=== PATIENT | male | born 1950 | race Caucasian/White ===

== ENCOUNTER 2017-06-11 09:41 | Emergency (ER) | payer SELFPAY ==
[~2017-06-11] VITALS: Ht 182.9 cm; Wt 95.3 kg
[~2017-06-11 09:41] MED LIST: AMLODIPINE BES2.5 MG ORAL; CIPRO500 MG PO; HYDROCHLOROTH12.5 M2 ORAL; HYTRIN5 MG PO; IMITREX50 MG ORAL; TERAZOSIN HCL5 MG PO; TRAMADOL HCL50 MG ORAL
[2017-06-11 10:21] LABS: APPEARANCE,URINE CLEAR; KETONES,URINE NEGATIVE (NEGATIVE); LEUKOCYTE ESTERASE ,URINE NEGATIVE (NEGATIVE); NITRITE,URINE NEGATIVE (NEGATIVE); PH,URINE 5 (4.5-8.0); PROTEIN,URINE NEGATIVE (NEGATIVE); UROBILINOGEN,URINE NORMAL MG/DL (0.0-1.0)
--- NOTE | 2017-06-11 10:26 | Emergency Room Report ---
History of Present Illness General Chief Complaint: Male Urogenital Problems Source: Patient Present Illness HPI 66-year-old male, history of hypertension and BPH, presenting with urinary retention for 3 days. Patient states difficulty with urination, has had mild dribbling for the last 3 days however no good stream of urine. Patient states that this has happened in the past and had he has required a Wylie. Patient states that he has been out of his terazosin for 6 days. Patient denies any chest pain shortness of breath abdominal pain fever or chills. No hematuria Allergies: Coded Allergies: No Known Allergies (Unverified , 08/26/14) Patient History Past Medical History: see triage record Past Surgical History: none Pertinent Family History: none Reviewed Nursing Documentation: PMH: Agreed, PSxH: Agreed Nursing Documentation-PMH Hx Cardiac Problems: No Hx Hypertension: Yes Hx Pacemaker: No Hx Asthma: No Hx COPD: No Hx Diabetes: No Hx Cancer: No Hx Gastrointestinal Problems: Yes Hx Dialysis: No - BPH History Of Psychiatric Problem: No Hx Neurological Problems: Yes Hx Cerebrovascular Accident: No Hx Seizures: No Hx Headaches: Yes - MIGRAINES Review of Systems All Other Systems: negative except mentioned in HPI Physical Exam Vital Signs Date Time Temp Pulse Resp B/P (MAP) Pulse Ox O2 Delivery O2 Flow Rate FiO2 06/11/17 09:45 97.7 86 14 124/86 95 Room Air Sp02 EP Interpretation: reviewed, normal General Appearance: normal inspection, well appearing, no apparent distress, alert, GCS 15, non-toxic Head: normocephalic, atraumatic Eyes: bilateral eye normal inspection, bilateral eye PERRL, bilateral eye EOMI ENT: normal ENT inspection, normal pharynx, normal voice, moist mucus membranes Neck: normal inspection, full range of motion, supple Respiratory: normal inspection, lungs clear, normal breath sounds, no respiratory distress, no retraction, no wheezing, speaking full sentences, chest symmetrical Cardiovascular #1: normal inspection, regular rate, rhythm, no edema, normal capillary refill Cardiovascular #2: 2+ radial (R), 2+ radial (L) Gastrointestinal: normal inspection, non tender, soft, non-distended, no guarding Genitourinary: no CVA tenderness Musculoskeletal: normal inspection, back normal, normal range of motion, non- tender Neurologic: normal inspection, alert, oriented x3, responsive, motor strength/ tone normal, sensory intact, normal gait, speech normal Psychiatric: normal inspection, judgement/insight normal, memory normal Skin: normal inspection, normal color, no rash, warm/dry, well hydrated, normal turgor Medical Decision Making Diagnostic Impression: Primary Impression: Urinary retention Additional Impression: BPH (benign prostatic hyperplasia) ER Course 66 yo male with urinary retention DDX: Urinary retention likely secondary to BPH, rule out UTI Plan: Obtain labs, ua Wylie placement ER course: Patient has remained stable during ED stay. Wylie placed which drained more than 1200 mL of urine. UA negative for infection. Patient feels much better. Disposition: Patient is to be discharged to home Wylie and leg bag Patient is instructed to follow up with their primary care doctor within 5 days. Patient is instructed to follow up with urology within 2 days for Wylie removal Strict return precautions discussed with patient such as fever, chills, worsening/severe pain, nausea, vomiting, which may indicate severe illness. Patient verbalizes understanding and agrees with plan. Please note that this Emergency Department Report was dictated using [employer]ert[employer] drier machine operator technology software, occasionally this can lead to erroneous entry secondary to interpretation by the dictation equipment Laboratory Tests Test 06/11/17 10:05 06/11/17 10:38 Urine Color Pale yellow Urine Appearance Clear Urine pH 5 (4.5-8.0) Urine Specific [place] 1.015 (1.005-1.035) Urine Protein Negative (NEGATIVE) Urine Glucose (UA) Negative (NEGATIVE) Urine Ketones Negative (NEGATIVE) Urine Occult Blood Negative (NEGATIVE) Urine Nitrite Negative (NEGATIVE) Urine Bilirubin Negative (NEGATIVE) Urine Urobilinogen Normal MG/DL (0.0-1.0) Urine Leukocyte Esterase Negative (NEGATIVE) White Blood Count 6.6 K/UL (4.8-10.8) Red Blood Count 4.38 M/UL (4.70-6.10) L Hemoglobin 14.8 G/DL (14.2-18.0) Hematocrit 42.3 % (42.0-52.0) Mean Corpuscular Volume 96 FL (80-99) Mean Corpuscular Hemoglobin 33.8 PG (27.0-31.0) H Mean Corpuscular Hemoglobin Concent 35.1 G/DL (32.0-36.0) Red Cell Distribution Width 10.6 % (11.6-14.8) L Platelet Count 189 K/UL (150-450) Mean Platelet Volume 7.8 FL (6.5-10.1) Neutrophils (%) (Auto) 82.1 % (45.0-75.0) H Lymphocytes (%) (Auto) 11.4 % (20.0-45.0) L Monocytes (%) (Auto) 5.2 % (1.0-10.0) Eosinophils (%) (Auto) 0.5 % (0.0-3.0) Basophils (%) (Auto) 0.8 % (0.0-2.0) Sodium Level 142 mEQ/L (135-145) Potassium Level 4.3 mEQ/L (3.4-4.9) Chloride Level 105 mEQ/L (98-107) Carbon Dioxide Level 26 mEQ/L (20-30) Anion Gap 11 (5-15) Blood Urea Nitrogen 23 mg/dL (7-23) Creatinine 1.4 mg/dL (0.7-1.2) H Estimate Glomerular Filtration Rate 51.0 mL/min (>60) Glucose Level 119 mg/dL (74-106) H Calcium Level 9.4 mg/dL (8.6-10.2) Total Bilirubin 0.4 mg/dL (0.0-1.2) Aspartate Amino Transferase (AST) 15 U/L (5-40) Alanine Aminotransferase (ALT) 16 U/L (3-41) Alkaline Phosphatase 71 U/L (40-129) Total Protein 7.3 g/dL (6.6-8.7) Albumin 4.2 g/dL (3.5-5.2) Globulin 3.1 g/dL Albumin/Globulin Ratio 1.3 (1.0-2.7) Rhythm Strip Diag. Results EP Interpretation: yes Rate: 70 Rhythm: NSR, no PVC's, no ectopy Last Vital Signs Date Time Temp Pulse Resp B/P (MAP) Pulse Ox O2 Delivery O2 Flow Rate FiO2 06/11/17 09:45 97.7 86 14 124/86 95 Room Air Disposition: HOME, SELF-CARE Condition: Improved Referrals: NOT CHOSEN IPA/,REFERRING (PCP) Elizabeth Agudelo M.D. Jun 11, 2017 10:26
[2017-06-11] MEDS ORDERED: Acetaminophen 500mg (ES) tab ORAL ONE (10:30)
[2017-06-11 10:54] LABS: BASOPHILS % (AUTO) 0.8 % (0.0-2.0); EOSINOPHILS % (AUTO) 0.5 % (0.0-3.0); LYMPHOCYTES % (AUTO) 11.4 % (20.0-45.0); MEAN CORPUSCULAR HEMOGLOBIN 33.8 PG (27.0-31.0); MEAN CORPUSCULAR HGB CONC 35.1 G/DL (32.0-36.0); MEAN CORPUSCULAR VOLUME 96 FL (80-99); MEAN PLATELET VOLUME 7.8 FL (6.5-10.1); MONOCYTES % (AUTO) 5.2 % (1.0-10.0); NEUTROPHILS % (AUTO) 82.1 % (45.0-75.0); PLATELET COUNT 189 K/UL (150-450); RED BLOOD COUNT 4.38 M/UL (4.70-6.10); RED CELL DISTRIBUTION WIDTH 10.6 % (11.6-14.8); WHITE BLOOD COUNT 6.6 K/UL (4.8-10.8)
[2017-06-11 11:06] LABS: ALBUMIN/GLOBULIN RATIO 1.3 (1.0-2.7); CALCIUM 9.4 mg/dL (8.6-10.2); CREATININE 1.4 mg/dL (0.7-1.2); POTASSIUM 4.3 mEQ/L (3.4-4.9); TOTAL PROTEIN 7.3 g/dL (6.6-8.7)
[2017-06-11 12:01] VITALS: BP 14/68
== END 2017-06-11 12:04 | disposition home or self-care (01) ==
LOC: EMR 10:15
DX: N40.1 Benign prostatic hyperplasia with lower urinary tract symptoms (principal); R33.8 Other retention of urine; I10 Essential (primary) hypertension
CPT/HCPCS: 36415; 51702; 80053; 81003; 85025; 99284

== ENCOUNTER 2017-10-07 08:34 | Emergency (ER) | payer MEDICAID ==
[~2017-10-07] VITALS: Ht 180.3 cm; Wt 93.0 kg
[2017-10-07 08:55] VITALS: BP 135/86
[2017-10-07 10:18] LABS: APPEARANCE,URINE CLEAR; BILIRUBIN, URINE NEGATIVE (NEGATIVE); COLOR,URINE PALE YELLOW; GLUCOSE, URINE (UA) NEGATIVE (NEGATIVE); KETONES,URINE NEGATIVE (NEGATIVE); LEUKOCYTE ESTERASE ,URINE NEGATIVE (NEGATIVE); NITRITE,URINE NEGATIVE (NEGATIVE); PH,URINE 7 (4.5-8.0); PROTEIN,URINE NEGATIVE (NEGATIVE); UROBILINOGEN,URINE NORMAL MG/DL (0.0-1.0)
--- NOTE | 2017-10-07 10:54 | Emergency Room Report ---
History of Present Illness General Chief Complaint: Male Urogenital Problems Source: Patient Present Illness HPI Patient states he has a history of urinary retention. He an enlarged prostate. He states that he ran out of his Flomax. He states that he he was having difficulty urinating yesterday. He states he hasn't urinated at all today. He states he has a lot of pressure in the suprapubic region. He has urgency to go but is unable to urinate. He states that he does get his primary care at [facility]. He states he has had a Wylie catheter in the past. He denies fever or chills. He denies nausea or vomiting. He has no other complaints. Allergies: Coded Allergies: No Known Allergies (Unverified , 08/26/14) Patient History Past Medical History: see triage record, HTN, other - BPH Social History: Reports: smoking, alcohol use Reviewed Nursing Documentation: PMH: Agreed, PSxH: Agreed Nursing Documentation-PMH Hx Cardiac Problems: No Hx Hypertension: Yes Hx Pacemaker: No Hx Asthma: No Hx COPD: No Hx Diabetes: No Hx Cancer: No Hx Gastrointestinal Problems: No Hx Dialysis: No - BPH Hx Neurological Problems: No Hx Cerebrovascular Accident: No Hx Seizures: No Hx Headaches: Yes - MIGRAINES Review of Systems All Other Systems: negative except mentioned in HPI Physical Exam Vital Signs Date Time Temp Pulse Resp B/P (MAP) Pulse Ox O2 Delivery O2 Flow Rate FiO2 10/07/17 08:51 58 16 135/86 96 Room Air 10/07/17 08:55 98.1 Sp02 EP Interpretation: reviewed, normal General Appearance: no apparent distress, alert, GCS 15, non-toxic Head: normocephalic, atraumatic Eyes: bilateral eye normal inspection, bilateral eye PERRL ENT: hearing grossly normal, normal pharynx, no angioedema, normal voice Neck: full range of motion, supple/symm/no masses Respiratory: chest non-tender, lungs clear, normal breath sounds, speaking full sentences Cardiovascular #1: regular rate, rhythm, no edema Gastrointestinal: normal bowel sounds, non tender, soft, non-distended, no guarding, no rebound Rectal: deferred Genitourinary: normal inspection, no CVA tenderness Musculoskeletal: back normal, gait/station normal, normal range of motion, non- tender, calf tenderness Neurologic: alert, oriented x3, responsive, motor strength/tone normal, sensory intact, speech normal Psychiatric: judgement/insight normal, memory normal, mood/affect normal, no suicidal/homicidal ideation Reflexes: 3+ bicep (R), 3+ bicep (L), 3+ tricep (R), 3+ tricep (L), 3+ knee (R) , 3+ knee (L) Skin: normal color, no rash, warm/dry, well hydrated Lymphatic: no adenopathy Medical Decision Making Diagnostic Impression: Primary Impression: BPH (benign prostatic hyperplasia) Additional Impression: Urinary retention ER Course This patient presents with urinary retention. There is no evidence of infection on urinalysis. He is out of his Flomax. A Wylie catheter was placed with a leg bag with about a liter return of urine. The patient had complete relief of the symptoms. The patient plans to followup with his feet in the next couple days. I will give the patient a prescription for his Flomax. He is given return precautions and followup instructions. Laboratory Tests Test 10/07/17 09:51 Urine Color Pale yellow Urine Appearance Clear Urine pH 7 (4.5-8.0) Urine Specific [place] 1.010 (1.005-1.035) Urine Protein Negative (NEGATIVE) Urine Glucose (UA) Negative (NEGATIVE) Urine Ketones Negative (NEGATIVE) Urine Occult Blood Negative (NEGATIVE) Urine Nitrite Negative (NEGATIVE) Urine Bilirubin Negative (NEGATIVE) Urine Urobilinogen Normal MG/DL (0.0-1.0) Urine Leukocyte Esterase Negative (NEGATIVE) Last Vital Signs Date Time Temp Pulse Resp B/P (MAP) Pulse Ox O2 Delivery O2 Flow Rate FiO2 10/07/17 08:55 98.1 71 16 135/86 97 Room Air Status: improved Disposition: HOME, SELF-CARE Condition: Improved Referrals: NOT CHOSEN MATT/,REFERRING (PCP) SAURAV PERDOMO D.O. Oct 07, 2017 10:54
[2017-10-07] MEDS ORDERED: HYTRIN10 MG PO (11:00)
[2017-10-07 11:30] VITALS: BP 143/96
== END 2017-10-07 11:30 | disposition home or self-care (01) ==
LOC: EMR 09:20
DX: N40.1 Benign prostatic hyperplasia with lower urinary tract symptoms (principal); R33.8 Other retention of urine; I10 Essential (primary) hypertension
CPT/HCPCS: 81003; 99283

== ENCOUNTER 2017-11-19 11:31 | Emergency (ER) | payer MEDICARE, MEDICAID ==
[~2017-11-19] VITALS: Ht 182.9 cm; Wt 98.4 kg
[~2017-11-19 11:31] MED LIST changes: +HYTRIN10 MG PO
[2017-11-19 12:48] LABS: APPEARANCE,URINE TURBID; BILIRUBIN, URINE NEGATIVE (NEGATIVE); COLOR,URINE RED; GLUCOSE, URINE (UA) NEGATIVE (NEGATIVE); KETONES,URINE 1+ (NEGATIVE); LEUKOCYTE ESTERASE ,URINE 1+ (NEGATIVE); NITRITE,URINE NEGATIVE (NEGATIVE); PH,URINE 7 (4.5-8.0); PROTEIN,URINE 4+ (NEGATIVE); UROBILINOGEN,URINE NORMAL MG/DL (0.0-1.0)
[2017-11-19 14:59] VITALS: BP 139/80
--- NOTE | 2017-11-19 14:59 | Emergency Room Report ---
History of Present Illness General Chief Complaint: General Complaint Source: Patient Present Illness HPI 67-year-old male presents to the emergency department complaining of dysfunctional urinary Chris catheter in addition to blood clots in his catheter since this a.m. Patient states that he had catheter placed in October and had a new one replaced earlier this month on the . Patient states that he believes the replacement catheter is too small and is moving around in size causing him to have hematuria and blood clots. reports hx of BPH and takes Tamulosin. Patient reports 6/10 in severity abdominal distention at this time and rates his pain as 6/10 in severity. Denies fevers, chills, low back pain, nausea or vomiting. Denies CP, Palpitations, LOC, AMS, dizziness, Changes in Vision, Sensation, paresthesias, or a sudden severe headache. Allergies: Coded Allergies: No Known Allergies (Unverified , 08/26/14) Patient History Past Medical History: see triage record Past Surgical History: none Pertinent Family History: none Reviewed Nursing Documentation: PMH: Agreed, PSxH: Agreed Nursing Documentation-PMH Hx Cardiac Problems: No Hx Hypertension: Yes Hx Pacemaker: No Hx Asthma: No Hx COPD: No Hx Diabetes: No Hx Cancer: No Hx Gastrointestinal Problems: No Hx Dialysis: No - BPH Hx Neurological Problems: No Hx Cerebrovascular Accident: No Hx Seizures: No Hx Headaches: Yes - MIGRAINES Review of Systems All Other Systems: negative except mentioned in HPI Physical Exam Vital Signs Date Time Temp Pulse Resp B/P (MAP) Pulse Ox O2 Delivery O2 Flow Rate FiO2 11/19/17 11:55 98.0 55 17 139/80 96 98.1 Sp02 EP Interpretation: reviewed, normal General Appearance: no apparent distress, alert, GCS 15, non-toxic Head: normocephalic, atraumatic ENT: hearing grossly normal, normal voice Neck: full range of motion Respiratory: lungs clear, normal breath sounds, speaking full sentences Cardiovascular #1: regular rate, rhythm, no edema Gastrointestinal: soft, tenderness - mild ttp to deep palpation in the midline lower abdomen, indwelling urinary catheter noted. Genitourinary: normal inspection, other - indwelling urinary catheter noted. hematuria noted in the chris tube. Empty chris bag is attached. Musculoskeletal: back normal, gait/station normal, normal range of motion, non- tender Neurologic: alert, oriented x3, responsive, motor strength/tone normal, sensory intact, speech normal, grossly normal Psychiatric: judgement/insight normal Skin: normal color, no rash, warm/dry, well hydrated Medical Decision Making PA Attestation Dr. Smith is my supervising Physician whom patient management has been discussed with. Diagnostic Impression: Primary Impression: Chris catheter problem Qualified Codes: T83.9XXA - Unspecified complication of genitourinary prosthetic device, implant and graft, initial encounter ER Course 67-year-old male presents to the emergency department complaining of dysfunctional urinary Chris catheter in addition to blood clots in his catheter since this a.m. Patient states that he had catheter placed in October and had a new one replaced earlier this month on the . Patient states that he believes the replacement catheter is too small and is moving around in size causing him to have hematuria and blood clots. reports hx of BPH and takes Tamulosin. Patient reports 6/10 in severity abdominal distention at this time and rates his pain as 6/10 in severity. Denies fevers, chills, low back pain, nausea or vomiting. Denies CP, Palpitations, LOC, AMS, dizziness, Changes in Vision, Sensation, paresthesias, or a sudden severe headache. Ddx considered but are not limited to UTi , Pyelo, STI, Stone, Cystitis, chris cath blockage. Vital signs: are WNL, pt. is afebrile H&PE are most consistent with blocked chris catheter. ORDERS: - UA: some bacteria and squamous cells with no elevation in inflammatory markers not indicative of acute UTI, will send for culture. ED INTERVENTIONS: - After RN Flushing of Catheter- approx 800cc of urine with hematuria was collected in chris bag. - re-evaluation abdominal distention has improved -Bed Side Ultra-sound: did not reveal full/distended urinary bladder. - I discussed with this patient that he should follow up with his urologist within the next 72 hours especially since he is been having recurrent problems with his indwelling catheter since October. Also discussed with this patient that his urine will be sent for culture and if need be will be contacted and placed on antibiotics if needed. Gave the patient strict return to ED precautions for worsening or new symptoms such as inability to produce urine into the Chris bag. DISCHARGE: At this time pt. is stable for d/c to home. Will provide printed patient care instructions, and any necessary prescriptions. Care plan and follow up instructions have been discussed with the patient prior to discharge. Labs Test 11/19/17 12:20 Urine Color Red Urine Appearance Turbid Urine pH 7 (4.5-8.0) Urine Specific [place] 1.010 (1.005-1.035) Urine Protein 4+ (NEGATIVE) Urine Glucose (UA) Negative (NEGATIVE) Urine Ketones 1+ (NEGATIVE) Urine Occult Blood 5+ (NEGATIVE) Urine Nitrite Negative (NEGATIVE) Urine Bilirubin Negative (NEGATIVE) Urine Urobilinogen Normal MG/DL (0.0-1.0) Urine Leukocyte Esterase 1+ (NEGATIVE) Urine RBC Tntc /HPF (0 - 0) Urine WBC 2-4 /HPF (0 - 0) Urine Squamous Epithelial Cells Occasional /LPF Urine Bacteria Occasional /HPF (NONE) Last Vital Signs Date Time Temp Pulse Resp B/P (MAP) Pulse Ox O2 Delivery O2 Flow Rate FiO2 11/19/17 11:55 98.0 55 17 139/80 96 98.1 Disposition: HOME, SELF-CARE Condition: Stable Scripts Bismuth Subsalicylate (Pepto-Bismol) 262 Mg Tab.chew 262 MG PO BID, #10 TAB Prov: Fani Ross 11/19/17 Referrals: NON PHYSICIAN (PCP) Patient Instructions: Chris Catheter Care, Adult Additional Instructions: Take medications as directed. Follow up with YOUR UROLOGIST WITHIN 72 HOURS, even if your symptoms have resolved. --Please review list of primary care clinics, if you do not already have a primary care provider Return sooner to ED if new symptoms occur, or current symptoms become worse. - Please note that this Emergency Department Report was dictated using Jumiobot[employer] professor technology software, occasionally this can lead to erroneous entry secondary to interpretation by the dictation equipment. Fani Ross Nov 19, 2017 14:59
[2017-11-19 15:00] VITALS: BP 139/80
[2017-11-19] MEDS ORDERED: Bismuth Subsalicylate 30ml ORAL ONE (15:00)
[2017-11-19] MEDS ORDERED: PEPTO-BISMOL262 M2 PO (15:01)
== END 2017-11-19 15:30 | disposition home or self-care (01) ==
LOC: EMR 12:30
DX: T83.098A Other mechanical complication of other urinary catheter, initial encounter (principal); Y84.6 Urinary catheterization as the cause of abnormal reaction of the patient, or of later complication, without mention of misadventure at the time of the procedure; Y92.9 Unspecified place or not applicable; R31.9 Hematuria, unspecified; I10 Essential (primary) hypertension
CPT/HCPCS: 51702; 81003; 99283

== ENCOUNTER 2018-07-13 13:07 | Emergency (ER) | payer MEDICARE, MEDICAID ==
[~2018-07-13] VITALS: Ht 188 cm; Wt 97.5 kg
[~2018-07-13 13:07] MED LIST changes: +PEPTO-BISMOL262 M2 PO
[2018-07-13 13:51] VITALS: BP 170/98
--- NOTE | 2018-07-13 13:56 | Emergency Room Report ---
History of Present Illness General Chief Complaint: Male Urogenital Problems Source: Medical Record Present Illness HPI 68-year-old male patient presents ER requesting catheter change. Reports that the catheter has a "leak" and it. Patient reports that began leaking yesterday. Patient reports that he had a catheter placed one week ago at [facility]. Reports that it was placed and he was given ciprofloxacin and Flomax to treat his prostatitis. Reports pain with urinating since that time. Reports still taking Cipro, states that he has 3 days left of medication. Denies fever, chest pain, shortness of breath, abdominal pain. Reports that he noticed some blood clots passing in his urine yesterday but not today. patient currently wearing a catheter back on his leg, urine appears clear, no blood clots noted in back. Allergies: Coded Allergies: No Known Allergies (Unverified , 08/26/14) Patient History Past Medical History: see triage record Reviewed Nursing Documentation: PMH: Agreed; PSxH: Agreed Nursing Documentation-PMH Past Medical History: No History, Except For Hx Cardiac Problems: No - Migraine Hx Hypertension: Yes Hx Pacemaker: No Hx Asthma: No Hx COPD: No Hx Diabetes: No Hx Cancer: No Hx Gastrointestinal Problems: No Hx Dialysis: No - BPH Hx Neurological Problems: No Hx Cerebrovascular Accident: No Hx Seizures: No Hx Headaches: Yes - MIGRAINES Review of Systems All Other Systems: negative except mentioned in HPI Physical Exam Vital Signs Date Time Temp Pulse Resp B/P (MAP) Pulse Ox O2 Delivery O2 Flow Rate FiO2 07/13/18 13:26 98.6 67 18 174/100 96 Room Air 98.6 Sp02 EP Interpretation: reviewed, normal General Appearance: well appearing, no apparent distress, alert, GCS 15, non- toxic Head: normocephalic, atraumatic Eyes: bilateral eye normal inspection, bilateral eye PERRL ENT: hearing grossly normal, normal pharynx, no angioedema, normal voice, uvula midline, moist mucus membranes Neck: full range of motion Respiratory: lungs clear, normal breath sounds, no rhonchi, no respiratory distress, no accessory muscle use, no wheezing, speaking full sentences Cardiovascular #1: regular rate, rhythm, no edema Gastrointestinal: non tender, soft, no mass, non-distended, no guarding, no rebound Genitourinary: no CVA tenderness, other - Chris catheter Musculoskeletal: back normal, digits/nails normal, gait/station normal, normal range of motion, non-tender Neurologic: alert, oriented x3, responsive, motor strength/tone normal, sensory intact Psychiatric: mood/affect normal Skin: no rash Medical Decision Making PA Attestation Dr. Rodriguez is my supervising Physician whom patient management has been discussed with. Diagnostic Impression: Primary Impression: Chris catheter problem ER Course Pt. presents to the ED c/o difficulty urinating due to fully catheter not draining. Ddx considered but are not limited to UTI, BPH, urinary obstruction, Chris catheter problem Vital signs: are WNL, pt. is afebrile ER COURSE: replaced Chris catheter in the ER. size 16. UA shows no signs of infection, does not require new antibiotics. Continue taken previous antibiotics and Flomax as previously instructed. Follow-up with urology as scheduled appointment. Drink plenty of fluids. patient tolerated procedure well. Patient reports feeling better following catheter replacement. draining well, mild hematuria noted in chris bag, likely due to catheter placement. Patient passing urine without difficulty with catheter. Patient okay for close outpatient follow-up. ER precautions given, patient stable and discharged home with Chris catheter replaced. Followup with urology. DISCHARGE: At this time pt is stable for d/c to home. Patient is resting comfortably, in no acute distress, nontoxic appearing, talking without difficulty. Patient to take medications as instructed Will provide with patient care instructions and any necessary prescriptions. Care plan and follow-up instructions provided. Patient instructed to follow-up with primary care provider in 3 - 5 days. Patient questions asked and answered. Patient reports understanding and agreement to treatment plan. ER precautions given. Patient instructed to return to ER immediately for any new or worsening of symptoms including but not limited to increasing SOB, persistent fever, chest pain, intractable vomiting. - Please note that this Emergency Department Report was dictated using [employer]dy[employer] and shaper knitted goods technology software, occasionally this can lead to erroneous entry secondary to interpretation by the dictation equipment. Labs Test 07/13/18 14:00 Urine Color Yellow Urine Appearance Clear Urine pH 6 (4.5-8.0) Urine Specific [place] 1.015 (1.005-1.035) Urine Protein 2+ (NEGATIVE) Urine Glucose (UA) Negative (NEGATIVE) Urine Ketones Negative (NEGATIVE) Urine Blood 4+ (NEGATIVE) Urine Nitrite Negative (NEGATIVE) Urine Bilirubin Negative (NEGATIVE) Urine Urobilinogen Normal MG/DL (0.0-1.0) Urine Leukocyte Esterase 2+ (NEGATIVE) Urine RBC 10-15 /HPF (0 - 0) Urine WBC 2-4 /HPF (0 - 0) Urine Squamous Epithelial Cells Occasional /LPF Urine Bacteria Occasional /HPF (NONE) Last Vital Signs Date Time Temp Pulse Resp B/P (MAP) Pulse Ox O2 Delivery O2 Flow Rate FiO2 07/13/18 13:26 98.6 67 18 174/100 96 Room Air 98.6 Disposition: HOME, SELF-CARE Condition: Stable Patient Instructions: Chris Catheter Care, Adult Additional Instructions: Followup with primary care provider in 3 -5 days. Follow-up with urology as scheduled appointment. Continue taking medications as previously instructed. Take medications as directed. Patient questions asked and answered. ER precautions given, patient instructed to return to ER immediately for any new or worsening of symptoms. Russell Kaplan Jul 13, 2018 13:56
[2018-07-13 14:28] LABS: APPEARANCE,URINE CLEAR; BILIRUBIN, URINE NEGATIVE (NEGATIVE); COLOR,URINE YELLOW; GLUCOSE, URINE (UA) NEGATIVE (NEGATIVE); KETONES,URINE NEGATIVE (NEGATIVE); LEUKOCYTE ESTERASE ,URINE 2+ (NEGATIVE); NITRITE,URINE NEGATIVE (NEGATIVE); PH,URINE 6 (4.5-8.0); PROTEIN,URINE 2+ (NEGATIVE); UROBILINOGEN,URINE NORMAL MG/DL (0.0-1.0)
[2018-07-13 16:26] VITALS: BP 161/89
== END 2018-07-13 16:28 | disposition home or self-care (01) ==
LOC: EMR 15:16
DX: Z46.6 Encounter for fitting and adjustment of urinary device (principal); T83.031A Leakage of indwelling urethral catheter, initial encounter; N40.0 Benign prostatic hyperplasia without lower urinary tract symptoms; I10 Essential (primary) hypertension; Z79.2 Long term (current) use of antibiotics
CPT/HCPCS: 51702; 81003; 99283

== ENCOUNTER 2018-08-21 16:03 | Emergency (ER) | payer MEDICARE, MEDICAID ==
[~2018-08-21] VITALS: Ht 182.9 cm; Wt 97.5 kg
[2018-08-21 16:38] VITALS: BP 152/82
[2018-08-21] MEDS ORDERED: Tylenol #3 tab (300mg/30mg) ORAL ONE (16:45)
--- NOTE | 2018-08-21 17:53 | Diagnostic Imaging Report ---
EXAM: XR Left Hand Complete, 3 Views CLINICAL HISTORY: PAIN TECHNIQUE: Frontal, lateral and oblique views of the left hand. COMPARISON: No relevant prior studies available. FINDINGS: Bones/joints: Unremarkable. No acute fracture. No dislocation. Soft tissues: Unremarkable. No radiopaque foreign body. IMPRESSION: No definite plain film evidence for acute fracture or dislocation. If there is continued clinical concern for fracture, consider CT or MRI for further evaluation.
--- NOTE | 2018-08-21 17:53 | Emergency Room Report ---
History of Present Illness General Chief Complaint: Upper Extremity Injury Source: Patient, Medical Record Present Illness HPI 68-year-old male presents to the emergency department complaining of localized 6 out of 10 in severity pain to the base of the left thumb with swelling, tenderness and weakness with grasping x 3 weeks. Patient denies numbness or tingling. Patient states that 3 weeks ago he was carrying a bag. Door when his thumb got stuck on the door frame and bent backwards. Patient states that his symptoms have not resolved. Patient denies previous injuries to this extremity. Denies bruising or increased temperature palpation. Denies history of arthritis. Pt. is Right hand dominant. Denies numbness tingling or loss of sensation or gross motor movements of the extremities, incontinence of bowel or bladder. Denies CP, Palpitations, LOC, AMS, dizziness, Changes in Vision, weakness or a sudden severe headache. Allergies: Coded Allergies: No Known Allergies (Unverified , 08/26/14) Patient History Past Medical History: see triage record Past Surgical History: none Pertinent Family History: none Immunizations: UTD Reviewed Nursing Documentation: PMH: Agreed; PSxH: Agreed Nursing Documentation-PMH Past Medical History: No History, Except For Hx Cardiac Problems: No - Migraine Hx Hypertension: Yes Hx Pacemaker: No Hx Asthma: No Hx COPD: No Hx Diabetes: No Hx Cancer: No Hx Gastrointestinal Problems: No - Spleen rupture Hx Dialysis: No - BPH Hx Neurological Problems: No Hx Cerebrovascular Accident: No Hx Seizures: No Hx Headaches: Yes - MIGRAINES Review of Systems All Other Systems: negative except mentioned in HPI Physical Exam Vital Signs Date Time Temp Pulse Resp B/P (MAP) Pulse Ox O2 Delivery O2 Flow Rate FiO2 08/21/18 16:07 98.1 56 23 173/81 97 Room Air Sp02 EP Interpretation: reviewed, normal General Appearance: no apparent distress, alert, GCS 15, non-toxic Head: normocephalic, atraumatic Eyes: bilateral eye normal inspection, bilateral eye PERRL ENT: hearing grossly normal, normal voice Neck: full range of motion Respiratory: lungs clear, normal breath sounds, speaking full sentences Cardiovascular #1: regular rate, rhythm, normal capillary refill Cardiovascular #2: 2+ radial (R), 2+ radial (L) Musculoskeletal: back normal, gait/station normal, normal range of motion, swelling - base of the left thumb, tender - base of the left thumb. increased laxity with valgus stress. Swelling also noted Neurologic: alert, oriented x3, responsive, motor strength/tone normal, sensory intact, speech normal, grossly normal Psychiatric: judgement/insight normal Skin: normal color, no rash, warm/dry, well hydrated Medical Decision Making ROSALINDA Attestation Dr. cobb is my supervising Physician whom patient management has been discussed with. Diagnostic Impression: Primary Impression: Left thumb sprain Qualified Codes: S63.602A - Unspecified sprain of left thumb, initial encounter Additional Impression: Sprain of ulnar collateral ligament Qualified Codes: S53.442A - Ulnar collateral ligament sprain of left elbow, initial encounter ER Course 68-year-old male presents to the emergency department complaining of localized 6 out of 10 in severity pain to the base of the left thumb with swelling, tenderness and weakness with grasping x 3 weeks. Patient denies numbness or tingling. Patient states that 3 weeks ago he was carrying a bag. Door when his thumb got stuck on the door frame and bent backwards. Patient states that his symptoms have not resolved. Patient denies previous injuries to this extremity. Denies bruising or increased temperature palpation. Denies history of arthritis. Pt. is Right hand dominant. Denies numbness tingling or loss of sensation or gross motor movements of the extremities, incontinence of bowel or bladder. Denies CP, Palpitations, LOC, AMS, dizziness, Changes in Vision, weakness or a sudden severe headache. Ddx considered but are not limited to Fracture, dislocation, contusion, Sprain/ Strain/Spasm, nerve injury, Gamekeeper's thumb. Vital signs: are WNL, pt. is afebrile H&PE are most consistent with musculoskeletal injury will perform imaging to r/ o fractures/dislocations. Highly suspicious for Left ulnar collateral ligament injury due to increased laxity with valgus stress. ORDERS: - X-ray Left hand 3 views - negative for fx, Dislocation, or significant soft tissue injury, per preliminary read in ED, and signed by ROSALINDA Ross, my supervising physician has reviewed, and agrees with my interpretation. ED INTERVENTIONS: - T3 PO Thumb Spika Splint applied to the left thumb by electronics repair technician. Pt. remains neurovascularly intact. DISCHARGE: At this time pt. is stable for d/c to home. Will provide printed patient care instructions, and any necessary prescriptions. Care plan and follow up instructions have been discussed with the patient prior to discharge. Other X-Ray Diagnostic Results Other X-Ray Diagnostic Results : X-Ray ordered: Left Hand # of Views/Limited Vs Complete: 3 View Indication: Swelling EP Interpretation: No PA Xray: Interpretation reviewed, by supervising MD, and agrees with findings. Interpretation: no dislocation, no soft tissue swelling, no fractures Impression: No acute disease Electronically Signed by: Fani Ross PA-C Last Vital Signs Date Time Temp Pulse Resp B/P (MAP) Pulse Ox O2 Delivery O2 Flow Rate FiO2 08/21/18 16:38 98.1 82 23 152/82 97 Room Air Disposition: HOME, SELF-CARE Condition: Stable Scripts Acetaminophen* (TYLENOL EXTRA STRENGTH*) 500 Mg Tablet 500 MG ORAL Q6H, #20 TAB 0 Refills Prov: Fani Ross 08/21/18 Referrals: NOT CHOSEN IPA/MD,REFERRING (PCP) Patient Instructions: Ulnar Collateral Ligament Injury of the Thumb Additional Instructions: Take medications as directed. Follow up with an [facility] in 3-5 days, even if your symptoms have resolved. If symptoms persist MRI may be required at the discretion of your PCP or Ortho Specialist. --Please review list of primary care clinics, if you do not already have a primary care provider who can give you an Orthopedic Referral. Return sooner to ED if new symptoms occur, or current symptoms become worse. - Please note that this Emergency Department Report was dictated using [employer] welder technology software, occasionally this can lead to erroneous entry secondary to interpretation by the dictation equipment. Fani Ross Aug 21, 2018 17:53
[2018-08-21] MEDS ORDERED: TYLENOL EXTRA500 MG ORAL (17:54)
[2018-08-21 17:56] VITALS: BP 142/83
[2018-08-21 17:57] VITALS: BP 142/83
== END 2018-08-21 18:00 | disposition home or self-care (01) ==
LOC: EMR 16:39
DX: S63.602A Unspecified sprain of left thumb, initial encounter (principal); S53.442A Ulnar collateral ligament sprain of left elbow, initial encounter; W23.0XXA Caught, crushed, jammed, or pinched between moving objects, initial encounter; Y92.89 Other specified places as the place of occurrence of the external cause; I10 Essential (primary) hypertension; G43.909 Migraine, unspecified, not intractable, without status migrainosus; F17.200 Nicotine dependence, unspecified, uncomplicated
CPT/HCPCS: 99283